=== PATIENT | female | born 1955 | race Caucasian/White ===

== ENCOUNTER 2021-07-17 10:07 | Observation (INO) | payer SELFPAY ==
[~2021-07-17] VITALS: Ht 152.4 cm; Wt 44.0 kg
--- NOTE | 2021-07-17 10:10 | NUR ---
PT TO ROOM W/STEADY GAIT.
[2021-07-17] MEDS ORDERED: SYNTHROID25 MCG PO (11:12)
--- NOTE | 2021-07-17 11:31 | NUR ---
PATIENT AWARE A URINE SAMPLE IS NEEDED.
[2021-07-17 11:34] LABS: HEMATOCRIT 42.2 % (37.0-47.0); HEMOGLOBIN 13.8 g/dl (12.0-16.0); IMMATURE GRANULOCYTES 0.2 % (0.0-5.0); MEAN CORPUSCULAR HGB 30.4 pG CALC (26.0-32.0); MEAN CORPUSCULAR HGB CONC 32.7 g/dL CAL (32.0-36.0); NEUT# 9.27 thou/uL (2.00-7.15); RED BLOOD COUNT 4.54 mill/uL (4.20-5.60); RED CELL DISTRI WIDTH 11.8 % (11.5-15.5)
[2021-07-17 11:41] LABS: ALBUMIN 4.3 g/dL (3.2-5.0); ALKALINE PHOSPHATASE 51 u/l (38-126); AMYLASE 66 u/l (30-110); ANION GAP 13 (6-22 (CALC)); BILIRUBIN, TOTAL 0.8 mg/dL (0.0-1.4); BUN 10 mg/dL (8-23); BUN/CREATININE RATIO 13 (12-20 (CALC)); CARBON DIOXIDE 26 mmol/l (22-30); CHLORIDE 100 mmol/l (95-108); CREATININE 0.8 mg/dL (0.5-1.0); GFR > 60 ML/MIN (>=60 (CALC)); GFR FOR AFR.AMER. > 60 ML/MIN (>=60 (CALC)); LIPASE 29 u/l (23-300); SGOT/AST 27 u/l (9-36); SODIUM 135 mmol/l (137-146); TOTAL PROTEIN 7.8 g/dL (6.3-8.2)
[2021-07-17 13:05] LABS: URINE BILIRUBIN - DIPSTICK NEGATIVE (NEGATIVE); URINE BLOOD DIPSTICK MODERATE (NEGATIVE); URINE COLOR YELLOW; URINE GLUCOSE - DIPSTICK NEGATIVE (NEGATIVE); URINE KETONE 40 mg/dL (NEGATIVE); URINE LEUK ESTERASE NEGATIVE (NEGATIVE); URINE PROTEIN - DIPSTICK NEGATIVE (NEG-TRACE); URINE SPECIFIC GRAVITY 1.015; URINE UROBILINOGEN - DIPSTICK 0.2 E.U./dL (0.2)
[2021-07-17 13:10] LABS: URINE EPITHELIAL CELLS FEW EPI/hpf (0-FEW); URINE NITRITE - DIPSTICK NEGATIVE (Negative)
--- NOTE | 2021-07-17 13:50 | NUR ---
PATIENT BP 89/53. INFORMED DR. DAVIDSON AND SHE STATED TO GIVE A BOLUS.
--- NOTE | 2021-07-17 16:16 | NUR ---
REPORT RECIEVED FROM ER NURSE ELSA
--- NOTE | 2021-07-17 16:20 | NUR ---
Report given to Nelson on MS. Patient request for nicotine patch relayed to RN.
--- NOTE | 2021-07-17 16:40 | NUR ---
PT ARRIVED VIA WC WITH TAMIE HUNTER. STATES DISCOMFORT IN ABD AREA. REQUESTS NICTOTINE PATCH. MD NOTIFIED. ASSESSMENT ALLOWED AT THIS TIME. LUNG SOUNDS ARE DIMINISHED UPPER/LOWER LOBES ANTERIOR AND POSTERIOR. HEART SOUND SARE REGULAR. TELE MONITOR IN PLACE. CONTINOUS MONITORING BY ED. BOWEL SOUNDS ACTIVE X4. STATES HAS NOT HAD BM IN 10 DAYS. DOES NOT GET ANY URGES TO GO. IV 20G RAC IVF INFUSING PER EMAR.PT FEELS NO N/V AT THIS TIME. FALL/SAFTEY PRECAUTIONS IN PLACE. CALL LIGHT WITHIN REACH.
[2021-07-17 16:54] VITALS: BP 109/58
--- NOTE | 2021-07-17 19:15 | NUR ---
REPORT RECEIVED FROM Delmy SAMANO RN
[2021-07-17 19:30] VITALS: BP 90/58
--- NOTE | 2021-07-17 20:40 | NUR ---
ASSEMENT COMPLETED AT THIS TIME. MEDICATIONS NOT GIVEN. PT REFUSING 9 PM DOSE OF MAGNESIUM CITRATE AND REFUSING LOVENOX. PT STATES SHE HAS HAD 3 X LOOSE BOWEL MOVEMENT TODAY ALREADY. REFUSING LOVENOX BECAUSE SHE DOES NOT LIKE PUTTING MEDICATIONS IN HER BODY.
[2021-07-18] VITALS: BP 117/58
--- NOTE | 2021-07-18 | NUR ---
PT SLEEPING. EASILY AWOKEN BY WRITTER, DENIES NO CURRENT NEEDS. PT PREVIOUSLY REQUESTED SHOWER. NEVER SHOWERED STATING IT WAS TOO COLD. FLUIDS RESTARTED. CALL LIGHT AND BEDSIDE TABLE PLACED WITHIN REACH.
--- NOTE | 2021-07-18 01:31 | NUR ---
PT DEMANDIND TO TAKE A SHOWER.
[2021-07-18 04:00] VITALS: BP 97/57
--- NOTE | 2021-07-18 04:40 | NUR ---
PATIENT RESTING COMFORTABLY, NO APPARENT NEEDS, CALL LIGHT AND BEDSIDE TABLE WITHIN REACH.
[2021-07-18 05:47] LABS: MEAN CELL VOLUME 91.7 fL CALC (80.0-100.0); MEAN CORPUSCULAR HGB 30.6 pG CALC (26.0-32.0); MEAN CORPUSCULAR HGB CONC 33.3 g/dL CAL (32.0-36.0); RED BLOOD COUNT 3.73 mill/uL (4.20-5.60); RED CELL DISTRI WIDTH 11.8 % (11.5-15.5)
[2021-07-18 05:51] LABS: HEMATOCRIT 34.2 % (37.0-47.0); HEMOGLOBIN 11.4 g/dl (12.0-16.0)
[2021-07-18 06:01] LABS: ANION GAP 11 (6-22 (CALC)); BUN 11 mg/dL (8-23); BUN/CREATININE RATIO 15 (12-20 (CALC)); CARBON DIOXIDE 24 mmol/l (22-30); CHLORIDE 105 mmol/l (95-108); CREATININE 0.7 mg/dL (0.5-1.0); GFR > 60 ML/MIN (>=60 (CALC)); GFR FOR AFR.AMER. > 60 ML/MIN (>=60 (CALC)); MAGNESIUM 2.1 mg/dL (1.6-2.3); POTASSIUM 4.3 mmol/l (3.5-5.1); SODIUM 136 mmol/l (137-146)
[2021-07-18 08:30] VITALS: BP 90/54
--- NOTE | 2021-07-18 08:45 | NUR ---
PT SITTING IN BED. EVEN AND UNLABORED RESPIRATIONS; DIMINISHED LUNG SOUNDS UPON AUSCULTATION. HYPOACTIVE BOWEL SOUNDS X4 QUADRANTS. TELEMETRY IN PLACE. SAFETY PRECAUTIONS IN PLACE. CALL LIGHT WITHIN REACH.
[2021-07-18 10:48] VITALS: BP 89/57
--- NOTE | 2021-07-18 10:49 | NUR ---
AND BI ANRP AT BEDSIDE DISCUSSING POC.
[2021-07-18] MEDS ORDERED: SENNA LAXATIVE8.6 MG PO (10:56)
[2021-07-18] MEDS ORDERED: CITROMA PO (10:56)
--- NOTE | 2021-07-18 12:43 | NUR ---
PT SITTING IN BED. NO DISTRESS NOTED. PT DENIES PAIN AT THIS MOMENT. TELEMETRY IN PLACE. PT STATES: " I'M READY TO GO HOME". SAFETY PRECAUTIONS IN PLACE. CALL LIGHT WITHIN REACH.
--- NOTE | 2021-07-18 13:25 | NUR ---
Discharge instructions given. Patient verbalizes understanding of same. Discharged in stable condition via Wheelchair to Home with staff. All belongings sent with pt.
== END 2021-07-18 13:27 | disposition home or self-care (01) | DRG 390 ==
LOC: ED 10:07 → ED-I 13:40 → ED 13:57 → MS2 13:58
PROVIDERS: ADMIT Hospitalist; ATTEND Hospitalist
DX: K56.41 Fecal impaction (principal); I95.9 Hypotension, unspecified; J43.9 Emphysema, unspecified; E03.9 Hypothyroidism, unspecified; F17.210 Nicotine dependence, cigarettes, uncomplicated; Z20.822 Contact with and (suspected) exposure to COVID-19
CPT/HCPCS: G0378; J1650; Q9967

== ENCOUNTER 2022-08-14 13:48 | Emergency (ER) | payer MEDICARE ==
[~2022-08-14] VITALS: Ht 152.4 cm; Wt 46.4 kg
[2022-08-14] VITALS (7 sets, daily range): BP systolic 97–118; BP diastolic 51–63
[~2022-08-14 13:48] MED LIST: CITROMA PO; SENNA LAXATIVE8.6 MG PO; SYNTHROID25 MCG PO
[2022-08-14 17:18] LABS: URINE BILIRUBIN - DIPSTICK NEGATIVE (NEGATIVE); URINE BLOOD DIPSTICK SMALL (NEGATIVE); URINE COLOR YELLOW; URINE GLUCOSE - DIPSTICK NEGATIVE (NEGATIVE); URINE KETONE NEGATIVE (NEGATIVE); URINE LEUK ESTERASE NEGATIVE (NEGATIVE); URINE PROTEIN - DIPSTICK NEGATIVE (NEG-TRACE); URINE UROBILINOGEN - DIPSTICK 0.2 E.U./dL (0.2)
[2022-08-14 17:19] LABS: BASO% 0.3 % (0-3); HEMOGLOBIN 12.9 g/dl (12.0-16.0); IMMATURE GRANULOCYTES 0.2 % (0.0-5.0); LYMPH% 42.3 % (15-41); MEAN CELL VOLUME 89.7 fL CALC (80.0-100.0); MEAN CORPUSCULAR HGB 28.9 pG CALC (26.0-32.0); MEAN CORPUSCULAR HGB CONC 32.3 g/dL CAL (32.0-36.0); MONO% 6.7 % (2-13); NEUT# 3.18 thou/uL (2.00-7.15); NEUT% 48.5 % (42-76); RED BLOOD COUNT 4.46 mill/uL (4.20-5.60)
[2022-08-14 17:20] LABS: URINE NITRITE - DIPSTICK NEGATIVE (Negative)
[2022-08-14 17:25] LABS: URINE SQUAMOUS EPITHELIAL CELL FEW EPI/hpf (0-FEW)
[2022-08-14 17:32] LABS: ALBUMIN 4.5 g/dL (3.2-5.0); ALKALINE PHOSPHATASE 45 u/l (38-126); ANION GAP 9 (6-22 (CALC)); BILIRUBIN, TOTAL 0.4 mg/dL (0.02-1.3); BUN 12 mg/dL (8-23); BUN/CREATININE RATIO 13 (12-20 (CALC)); CARBON DIOXIDE 26 mmol/l (22-30); CHLORIDE 105 mmol/l (95-108); CREATININE 0.9 mg/dL (0.5-1.0); GFR FOR AFR.AMER. > 60 ML/MIN (>=60 (CALC)); GFR OTHER RACES > 60 ML/MIN (>=60 (CALC)); POTASSIUM 4.2 mmol/l (3.5-5.1); SGOT/AST 28 u/l (9-36); SODIUM 135 mmol/l (137-146); TOTAL PROTEIN 7.4 g/dL (6.3-8.2)
== END 2022-08-14 19:49 | disposition home or self-care (01) ==
LOC: ED 13:48
PROVIDERS: Nurse Practitioner
DX: K59.00 Constipation, unspecified (principal); K57.30 Diverticulosis of large intestine without perforation or abscess without bleeding; F17.200 Nicotine dependence, unspecified, uncomplicated; R91.1 Solitary pulmonary nodule; K76.89 Other specified diseases of liver